=== PATIENT | female | born 1995 | race Caucasian/White ===

== ENCOUNTER 2018-04-11 16:16 | Emergency (ER) | payer OTHER ==
[~2018-04-11] VITALS: Ht 162.5 cm; Wt 97.5 kg
[~2018-04-11 16:16] MED LIST: ABILIFY5 MG PO; MOTRIN400 MG PO; NO DAILY MEDS; TRAZODONE100 MG PO; ZOLOFT50 MG PO
[2018-04-11] MEDS ORDERED: FLONASE ALLERG9.9 ML NAS (16:45)
[2018-04-11] MEDS ORDERED: PREDNISONE20 M1 PO (16:45)
[2018-04-11] MEDS ORDERED: ZYRTEC10 MG PO (16:45)
[2018-07-17] MEDS ORDERED: HYDROXYZINE HCL25 MG PO (23:42)
== END 2018-04-11 16:52 | disposition home or self-care (01) ==
LOC: ED 16:16
DX: J06.9 Acute upper respiratory infection, unspecified (principal); H65.03 Acute serous otitis media, bilateral; Z79.899 Other long term (current) drug therapy

== ENCOUNTER 2018-04-15 11:31 | Emergency (ER) | payer OTHER ==
[~2018-04-15] VITALS: Ht 162.5 cm; Wt 97.5 kg
[~2018-04-15 11:31] MED LIST changes: +FLONASE ALLERG9.9 ML NAS; +PREDNISONE20 M1 PO; +ZYRTEC10 MG PO
[2018-04-15] MEDS ORDERED: FLONASE ALLERG9.9 ML NAS (12:04)
[2018-04-15] MEDS ORDERED: ZITHROMAX250 MG PO (12:04)
== END 2018-04-15 12:14 | disposition home or self-care (01) ==
LOC: ED 11:31
DX: J01.90 Acute sinusitis, unspecified (principal)

== ENCOUNTER 2018-06-12 20:06 | Emergency (ER) | payer SELFPAY ==
[~2018-06-12] VITALS: Ht 162.5 cm; Wt 99.8 kg
[~2018-06-12 20:06] MED LIST changes: +ZITHROMAX250 MG PO
[2018-06-12] MEDS ORDERED: SEPTDS PO (20:50)
[2018-06-12] MEDS ORDERED: TESSALON PERLE100 M1 PO (20:50)
[2018-06-12] MEDS ORDERED: FLONASE ALLERG9.9 ML NAS (20:50)
[2018-07-17] MEDS ORDERED: HYDROXYZINE HCL25 MG PO (23:42)
== END 2018-06-12 21:20 | disposition home or self-care (01) ==
LOC: ED 20:06
DX: J32.9 Chronic sinusitis, unspecified (principal); R11.10 Vomiting, unspecified; R19.7 Diarrhea, unspecified

== ENCOUNTER 2018-07-06 08:50 | Emergency (ER) | payer SELFPAY ==
[~2018-07-06] VITALS: Ht 162.5 cm; Wt 99.8 kg
[~2018-07-06 08:50] MED LIST changes: +SEPTDS PO; +TESSALON PERLE100 M1 PO
[2018-07-06 09:55] LABS: BASO % 0.2 % (0.0-1.0); EOS # 0.2 10*3/uL (0.0-0.4); EOS % 2.2 % (1.0-4.0); HEMATOCRIT 44.5 % (37.0-47.0); HEMOGLOBIN 15.8 g/dl (12.0-16.0); LYMPH # 1.4 10*3/uL (1.3-4.4); LYMPH % 17.7 % (27.0-41.0); MEAN CORPUSCULAR HGB 31.6 pg (27.0-31.0); MEAN CORPUSCULAR HGB CONC 35.5 g/dl (33.0-37.0); MONO # 0.5 10*3/uL (0.1-1.0); MONO % 6.5 % (3.0-9.0); NEUT # 5.9 10*3/uL (2.3-7.9); PLATELET COUNT AUTOMATED 188 10*3/uL (130-400)
[2018-07-06 10:19] LABS: ALBUMIN 3.8 gm/dl (3.1-4.5); ALKALINE PHOSPHATASE 46 U/L (45-117); BUN 15 mg/dl (7-24); CHLORIDE 107 mmol/L (98-107); CREATININE 0.89 mg/dL (0.55-1.02); LIPASE 125 U/L (73-393); POTASSIUM 4.3 mmol/L (3.5-5.1); SGOT/AST 17 IU/L (3-35); SGPT/ALT 33 U/L (12-78); SODIUM 140 mmol/L (136-145)
[2018-07-06 10:22] LABS: BILIRUBIN NEGATIVE (NEGATIVE); BLOOD 3+ (NEGATIVE); CLARITY CLOUDY (CLEAR); COLOR BROWN (YELLOW); GLUCOSE NEGATIVE (NEGATIVE); KETONE TRACE (NEGATIVE); LEUKO ESTERASE NEGATIVE (NEGATIVE); NITRITE NEGATIVE (NEGATIVE); SPECIFIC GRAVITY >= 1.030 (1.005-1.030); UROBILINOGEN 0.2 E.U./dl (0.2-1.0)
[2018-07-06 10:36] LABS: RBC TNTC rbc/hpf (0-2)
[2018-07-06 10:37] LABS: BACTERIA 3+; MUCOUS 2+
[2018-07-06] MEDS ORDERED: ZOFRAN4 MG PO (12:53)
[2018-07-06] MEDS ORDERED: IBUPROFEN600 MG PO (12:53)
[2018-07-06] MEDS ORDERED: ROBAXIN500 M1 PO (12:53)
[2018-07-17] MEDS ORDERED: HYDROXYZINE HCL25 MG PO (23:42)
== END 2018-07-06 12:58 | disposition home or self-care (01) ==
LOC: ED 08:50
PROVIDERS: Physician Assistant
DX: S33.5XXA Sprain of ligaments of lumbar spine, initial encounter (principal); K52.9 Noninfective gastroenteritis and colitis, unspecified; F17.200 Nicotine dependence, unspecified, uncomplicated; X50.0XXA Overexertion from strenuous movement or load, initial encounter; Y93.89 Activity, other specified; Y92.69 Other specified industrial and construction area as the place of occurrence of the external cause; Y99.0 Civilian activity done for income or pay

== ENCOUNTER 2018-09-01 16:57 | Emergency (ER) | payer SELFPAY ==
[~2018-09-01] VITALS: Ht 162.5 cm; Wt 100.7 kg
[~2018-09-01 16:57] MED LIST changes: +HYDROXYZINE HCL25 MG PO; +IBUPROFEN600 MG PO; +ROBAXIN500 M1 PO; +ZOFRAN4 MG PO
[2018-09-01] MEDS ORDERED: FLONASE ALLERG9.9 ML NAS (17:55)
[2018-09-01] MEDS ORDERED: AMOXICILLIN500 M2 PO (17:55)
== END 2018-09-01 18:00 | disposition home or self-care (01) ==
LOC: ED 16:57
DX: J32.1 Chronic frontal sinusitis (principal); J32.0 Chronic maxillary sinusitis; Z79.899 Other long term (current) drug therapy

== ENCOUNTER → 2019-01-07 | Outpatient (CLI) | payer SELFPAY ==
[~2019-01-07] MED LIST changes: +AMOXICILLIN500 M2 PO
== END | disposition home or self-care (01) ==
LOC: US 12-20 09:30
DX: K80.80 Other cholelithiasis without obstruction (principal); K76.0 Fatty (change of) liver, not elsewhere classified

== ENCOUNTER 2019-08-28 22:44 | Emergency (ER) | payer OTHER ==
[~2019-08-28] VITALS: Ht 160 cm; Wt 99.8 kg
[2019-08-29] MEDS ORDERED: Motrin,Rufen800 MG PO (00:35)
[2019-08-29] MEDS ORDERED: CYCLOBENZAPRINE5 M3 PO (00:35)
== END 2019-08-29 01:00 | disposition home or self-care (01) ==
LOC: ED 22:44
DX: S13.9XXA Sprain of joints and ligaments of unspecified parts of neck, initial encounter (principal); S29.012A Strain of muscle and tendon of back wall of thorax, initial encounter; Z79.899 Other long term (current) drug therapy; V43.62XA Car passenger injured in collision with other type car in traffic accident, initial encounter; Y93.89 Activity, other specified; Y92.89 Other specified places as the place of occurrence of the external cause; Y99.8 Other external cause status